=== PATIENT | female | born 1985 | race Caucasian/White ===

== ENCOUNTER 2019-10-23 22:37 | Emergency (ER) | payer MEDICAID, OTHER ==
[~2019-10-23] VITALS: Ht 154.9 cm; Wt 65.8 kg
[2019-10-23 22:40] VITALS: BP 132/85
[2019-10-23] MEDS ORDERED: CEPHALEXIN 500 MG CAPSULE ONE (23:07)
[2019-10-23] MEDS ORDERED: SULFAMETH./TRIMETHOPRIM DS 800MG/160MG TABLET ONE (23:07)
[2019-10-23] MEDS ORDERED: LIDOCAINE-MPF 1%, 5ML ONE (23:08)
[2019-10-23] MEDS ORDERED: IBUPROFEN 200 MG TABLET ONE (23:17)
--- NOTE | 2019-10-23 23:22 | NUR ---
medicated per [facility] i&d supplies set up for provider-including provision with lidocaine
[2019-10-23] MEDS ORDERED: CEPHALEXIN 500 MG CAPSULE PO ONE (23:30)
[2019-10-23] MEDS ORDERED: IBUPROFEN 200 MG TABLET PO ONE (23:30)
[2019-10-23] MEDS ORDERED: SULFAMETH./TRIMETHOPRIM DS 800MG/160MG TABLET PO ONE (23:30)
[2019-10-23] MEDS ORDERED: LIDOCAINE-MPF 1%, 5ML INFIL ONE (23:30)
== END 2019-10-24 00:09 | disposition home or self-care (01) ==
LOC: ED 10-24 00:03
DX: L02.811 Cutaneous abscess of head [any part, except face] (principal); F17.210 Nicotine dependence, cigarettes, uncomplicated
CPT/HCPCS: 10061; 99284

== ENCOUNTER 2019-10-25 10:20 | Emergency (ER) | payer MEDICAID, OTHER ==
[~2019-10-25] VITALS: Ht 154.9 cm; Wt 63.5 kg
[2019-10-25 10:30] VITALS: BP 120/67
--- NOTE | 2019-10-25 11:12 | NUR ---
Patient/Caregiver given discharge instructions and they have confirmed that they understand the instructions. Patient ambulatory with steady gait. pt left with all personal belongings.
== END 2019-10-25 11:14 | disposition home or self-care (01) ==
LOC: ED 10:50
DX: Z48.01 Encounter for change or removal of surgical wound dressing (principal); F17.200 Nicotine dependence, unspecified, uncomplicated
CPT/HCPCS: 99283